=== PATIENT | male | born 1945 | race Caucasian/White ===

== ENCOUNTER 2019-10-12 14:11 | Emergency (ER) | payer OTHER ==
[~2019-10-12] VITALS: Ht 180.3 cm; Wt 90.7 kg
--- NOTE | 2019-10-12 14:12 | NUR ---
PT AMBULATED TO BED 07.
[2019-10-12 14:18] VITALS: BP 109/56
--- NOTE | 2019-10-12 14:53 | NUR ---
BIB FAMILY C/O CHEST PAIN RADIATING TO BACK OF NECK/ DIZZINESS/ MILD COUGH CHEST PAIN BEGAN THIS MORNING, RADIATES TO BACK OF NECK. REPORTS TO FEEL SIMILAR TO HEART BURN. REPORTS TO HAVE MILD COUGH. NO SOB NOTED. RESP EVEN AND UNLABORED. PMH: BPH, NERVE PAIN, PRE DIABETIC NKA
[2019-10-12] MEDS ORDERED: FAMOTIDINE 20 MG TAB PO ONE (15:10)
[2019-10-12] MEDS ORDERED: ASPIRIN 325 MG TAB PO ONE (15:10)
[2019-10-12 15:31] LABS: BASOPHILS % (AUTO) 0.4 % (0.0-2.0); EOSINOPHILS % (AUTO) 0.5 % (0.0-4.0); HEMATOCRIT 40.3 % (36-52); LYMPHOCYTES # (AUTO) 2.1 K/uL (2.0-11.5); LYMPHOCYTES % (AUTO) 37.8 % (20.5-51.1); MEAN CORPUSCULAR HEMOGLOBIN 29 pg (27-31); MEAN CORPUSCULAR HGB CONC 32 g/dL (33-37); MEAN CORPUSCULAR VOLUME 89.6 fL (80-94); MONOCYTES % (AUTO) 17.5 % (1.7-9.3); NEUTROPHILS # (AUTO) 2.4 K/uL (1.8-7.7); NEUTROPHILS % (AUTO) 43.8 % (42.2-75.2); PLATELET COUNT (AUTO) 147 K/uL (140-450); RED BLOOD CELL COUNT(AUTO) 4.49 MIL/uL (4.20-6.10); RED CELL DISTRIBUTION WIDTH 13.4 % (11.6-13.7); WHITE BLOOD COUNT (AUTO) 5.5 K/uL (4.8-10.8)
[2019-10-12 15:46] LABS: ANION GAP 7.8 (8-16); CARBON DIOXIDE 30.6 mmol/L (21-32); CHLORIDE 105 mmol/L (98-107); CREATININE 0.9 mg/dL (0.7-1.3); GLUCOSE 82 mg/dL (74-106); POTASSIUM 4.4 mmol/L (3.5-5.1); SODIUM SERUM 139 mmol/L (136-145); UREA NITROGEN, BLOOD 25 mg/dL (7-18)
[2019-10-12 15:53] LABS: ALBUMIN 3.4 g/dL (3.4-5.0); ASPARTATE AMINOTRANSFERASE 14 U/L (15-37); TOTAL BILIRUBIN 0.3 mg/dL (0.0-1.0)
--- NOTE | 2019-10-12 16:51 | NUR ---
TRANSPORTED TO CT VIA WHEELCHAIR
[2019-10-12] MEDS: LIDOCAINE VISCOUS 2% 20 ML UDC PO ONE ×2 (17:14→17:18)
[2019-10-12 17:56] VITALS: BP 125/62
--- NOTE | 2019-10-12 17:56 | NUR ---
Patient discharged with v/s stable. Written and verbal after care instructions given and explained. Patient alert, oriented and verbalized understanding of instructions. Ambulatory with steady gait. All questions addressed prior to discharge. ID band removed. Patient advised to follow up with PMD. Rx of MIRALAX POWDER, [facility] MAGNESIUM CITRATE given. Patient educated on indication of medication including possible reaction and side effects. Opportunity to ask questions provided and answered.
== END 2019-10-12 17:56 | disposition home or self-care (01) ==
LOC: MED 14:11
DX: K65.4 Sclerosing mesenteritis (principal); K59.00 Constipation, unspecified
CPT/HCPCS: 36415; 71045; 74176; 80053; 83690; 83880; 84484; 85025; 93005; 99284; Q0092

== ENCOUNTER 2019-11-26 11:43 | Emergency (ER) | payer OTHER ==
[~2019-11-26] VITALS: Ht 180.3 cm; Wt 90.7 kg
[2019-11-26 11:48] VITALS: BP 131/76
--- NOTE | 2019-11-26 12:04 | NUR ---
C/O L HAND PAIN 05/15 X2 DAYS. PT REPORTS USING HIS HANDS TO HELP HIM STAND UP YESTERDAY WHEN HE FELT A SUDDEN SHARP PAIN SHORTLY THEREAFTER. PAIN AT LT THUMB CARPO METACARPAL AREA. SCAR OVER THIS AREA--PT STATES FROM PRIOR CANCER REMOVAL SURGERY. DENIES NUMBNESS/TINGLING. UNABLE TO FULLY FLEX THUMB. TOOK TYLENOL ES @ 4AM THIS MORNING, STATES TOLERABLE PAIN NOW. HX: ENLARGED PROSTATE
--- NOTE | 2019-11-26 12:10 | NUR ---
DR LIM EVALUATING PT @ BEDSIDE
--- NOTE | 2019-11-26 12:56 | NUR ---
DR VANN @ BEDSIDE
[2019-11-26 13:05] VITALS: BP 125/65
== END 2019-11-26 13:06 | disposition home or self-care (01) ==
LOC: MED 11:43
DX: S60.222A Contusion of left hand, initial encounter (principal); M13.832 Other specified arthritis, left wrist; N40.0 Benign prostatic hyperplasia without lower urinary tract symptoms; X58.XXXA Exposure to other specified factors, initial encounter; Y93.89 Activity, other specified; Y92.89 Other specified places as the place of occurrence of the external cause; Y99.8 Other external cause status
CPT/HCPCS: 29125; 73130; 99283; Q0092